=== PATIENT | female | born 2000 | race Caucasian/White ===

== ENCOUNTER 2023-10-11 01:03 | Emergency (ER) | payer MEDICAID ==
[~2023-10-11] VITALS: Ht 152.4 cm; Wt 88.5 kg
[2023-10-11] MEDS ORDERED: MECLIZINE HCL 25 MG TABLET ONE (01:42)
[2023-10-11] MEDS ORDERED: METOCLOPRAMIDE HCL 10 MG TABLET ONE (01:43)
[2023-10-11] MEDS: MECLIZINE HCL 25 MG TABLET PO ONE (02:10)
[2023-10-11] MEDS: METOCLOPRAMIDE HCL 10 MG TABLET PO ONE (02:10)
[2023-10-11 02:27] LABS: BASOPHILS # (AUTO) 0.1 K/uL (0.0-0.2); BASOPHILS % (AUTO) 0.8 % (0.0-2.0); EOSINOPHILS # (AUTO) 0.2 K/uL (0.0-0.7); EOSINOPHILS % (AUTO) 2.5 % (0.0-6.0); HEMATOCRIT 39 % (33-45); HEMOGLOBIN 13.5 g/dL (11.5-14.8); LYMPHOCYTES # (AUTO) 4.1 K/uL (0.8-4.8); LYMPHOCYTES % (AUTO) 42.3 % (20.0-44.0); MEAN CORPUSCULAR HEMOGLOBIN 31 PG (26.0-33.0); MEAN CORPUSCULAR HGB CONC 35 g/dl (31.0-36.0); MEAN CORPUSCULAR VOLUME 90 fL (82-100); MONOCYTES # (AUTO) 0.8 K/uL (0.1-1.30); NEUTROPHILS # (AUTO) 4.5 K/uL (1.8-8.9); NEUTROPHILS % (AUTO) 46.4 % (43.0-81.0); PLATELET COUNT (AUTO) 363 K/uL (150-450); RED BLOOD CELL COUNT(AUTO) 4.34 MIL/uL (4.0-5.2); RED CELL DISTRIBUTION WIDTH 12.7 % (11.5-15.0); WHITE BLOOD COUNT (AUTO) 9.6 K/uL (4.3-11.0)
[2023-10-11 02:38] LABS: CALCIUM, SERUM 9.3 mg/dL (8.5-10.1); CREATININE 0.7 mg/dL (0.6-1.3); POTASSIUM 3.7 mmol/L (3.5-5.1)
[2023-10-11] MEDS ORDERED: MECL-159 PO (02:48)
[2023-10-11] MEDS ORDERED: METO-295 PO (02:48)
[2023-10-11 03:05] VITALS: BP 129/72; TEMP 98.7; O2SAT 99
== END 2023-10-11 03:05 | disposition home or self-care (01) ==
LOC: ER 01:06
DX: H81.10 Benign paroxysmal vertigo, unspecified ear (principal)
CPT/HCPCS: 99284; 93005; 85025; 80048; 36415; J8597 ×2

== ENCOUNTER 2024-06-23 18:10 | Emergency (ER) | payer MEDICAID ==
[~2024-06-23] VITALS: Ht 167.6 cm; Wt 87.1 kg
[~2024-06-23 18:10] MED LIST: MECL-159 PO; METO-295 PO
[2024-06-23 19:31] LABS: APPEARANCE,URINE CLEAR (CLEAR); BILIRUBIN,URINE NEGATIVE (NEGATIVE); BLOOD, URINE 1+ Ery/uL (NEGATIVE); COLOR,URINE YELLOW (YELLOW); KETONES,URINE NEGATIVE (NEGATIVE); LEUKOCYTE ESTERASE ,URINE NEGATIVE (NEGATIVE); NITRITE, URINE NEGATIVE (NEGATIVE); PROTEIN,URINE NEGATIVE (NEGATIVE); UGLUCOSE NEGATIVE (NEGATIVE); UROBILINOGEN,URINE 0.2 EU/dL (0.2)
[2024-06-23 19:33] LABS: PREGNANCY TEST URINE QUAL NEGATIVE (NEGATIVE)
[2024-06-23 20:00] LABS: ADD URINE CULTURE NO; BACTERIA,URINE None seen /HPF (None Seen); WBC,URINE NONE SEEN /HPF (0-3)
[2024-06-23] MEDS ORDERED: BENZONATATE 100 MG CAPSULE PO ONE (20:03)
[2024-06-23] MEDS: BENZONATATE 100 MG CAPSULE PO ONE (20:04)
[2024-06-23] MEDS: ACETAMINOPHEN 325 MG TABLET PO ONE (20:44)
[2024-06-23] MEDS ORDERED: ACETAMINOPHEN ES 500 MG TABLET ONE (20:44)
[2024-06-23] MEDS ORDERED: BENZ-13 PO (21:49)
[2024-06-23] MEDS ORDERED: CEPH500C2 PO (21:49)
[2024-06-23 22:02] VITALS: BP 123/72; TEMP 99; O2SAT 96
== END 2024-06-23 22:02 | disposition home or self-care (01) ==
LOC: ER 18:20
DX: R05.9 Cough, unspecified (principal); R50.9 Fever, unspecified; R53.1 Weakness; M79.10 Myalgia, unspecified site; Z20.822 Contact with and (suspected) exposure to COVID-19
CPT/HCPCS: 71045-TC; 81001; 84703-TC; 87086-TC

== ENCOUNTER 2024-10-25 19:22 | Emergency (ER) | payer MEDICAID ==
[~2024-10-25] VITALS: Ht 157.5 cm; Wt 63.5 kg
[~2024-10-25 19:22] MED LIST changes: +BENZ-13 PO; +CEPH500C2 PO
[2024-10-25 20:40] VITALS: BP 123/75; TEMP 98.3; O2SAT 100
== END 2024-10-25 21:28 | disposition home or self-care (01) ==
LOC: ER 19:24
DX: B34.9 Viral infection, unspecified (principal); R19.7 Diarrhea, unspecified; Z91.048 Other nonmedicinal substance allergy status

== ENCOUNTER 2024-12-09 13:50 | Emergency (ER) | payer MEDICAID ==
[~2024-12-09] VITALS: Ht 167.6 cm; Wt 89.8 kg
[2024-12-09 15:01] LABS: BASOPHILS # (AUTO) 0.1 K/uL (0.0-0.2); BASOPHILS % (AUTO) 0.5 % (0.0-2.0); EOSINOPHILS # (AUTO) 0.1 K/uL (0.0-0.7); EOSINOPHILS % (AUTO) 0.8 % (0.0-6.0); HEMATOCRIT 34 % (33-45); HEMOGLOBIN 12.1 g/dL (11.5-14.8); LYMPHOCYTES # (AUTO) 2.3 K/uL (0.8-4.8); LYMPHOCYTES % (AUTO) 22.7 % (20.0-44.0); MEAN CORPUSCULAR HEMOGLOBIN 32 PG (26.0-33.0); MEAN CORPUSCULAR HGB CONC 35 g/dl (31.0-36.0); MEAN CORPUSCULAR VOLUME 90 fL (82-100); MONOCYTES # (AUTO) 0.9 K/uL (0.1-1.30); MONOCYTES % (AUTO) 8.8 % (2.0-12.0); NEUTROPHILS # (AUTO) 6.7 K/uL (1.8-8.9); NEUTROPHILS % (AUTO) 67.2 % (43.0-81.0); PLATELET COUNT (AUTO) 315 K/uL (150-450); RED BLOOD CELL COUNT(AUTO) 3.79 MIL/uL (4.0-5.2)
[2024-12-09 15:13] LABS: CALCIUM, SERUM 8.9 mg/dL (8.5-10.1); CREATININE 0.4 mg/dL (0.6-1.3); POTASSIUM 3.9 mmol/L (3.5-5.1)
[2024-12-09 15:28] LABS: ALBUMIN 2.9 g/dL (3.4-5.0); BILIRUBIN,DIRECT 0.1 mg/dL (0.0-0.2); BILIRUBIN,TOTAL 0.3 mg/dL (0.2-1.0); TOTAL PROTEIN, SERUM 6.5 g/dL (6.4-8.2)
[2024-12-09 15:55] LABS: APPEARANCE,URINE CLEAR (CLEAR); BILIRUBIN,URINE NEGATIVE (NEGATIVE); BLOOD, URINE NEGATIVE Ery/uL (NEGATIVE); COLOR,URINE YELLOW (YELLOW); KETONES,URINE NEGATIVE (NEGATIVE); LEUKOCYTE ESTERASE ,URINE NEGATIVE (NEGATIVE); NITRITE, URINE NEGATIVE (NEGATIVE); PH,URINE 6.5 (5.0-8.0); PROTEIN,URINE NEGATIVE (NEGATIVE); UGLUCOSE NEGATIVE (NEGATIVE); UROBILINOGEN,URINE 0.2 EU/dL (0.2)
[2024-12-09 15:56] LABS: PREGNANCY TEST URINE QUAL POSITIVE (NEGATIVE)
[2024-12-09 16:05] VITALS: BP 120/66; TEMP 98.6; O2SAT 100
== END 2024-12-09 16:06 | disposition home or self-care (01) ==
LOC: ER 13:50
DX: O26.892 Other specified pregnancy related conditions, second trimester (principal); R10.2 Pelvic and perineal pain; R10.84 Generalized abdominal pain; Z3A.18 18 weeks gestation of pregnancy
CPT/HCPCS: 36415; 76856-TC; 80048-TC; 80076-TC; 83690-TC; 84702-TC; 84703-TC; 85025-TC; 87086-TC